=== PATIENT | female | born 1945 | race Caucasian/White ===

== ENCOUNTER 2023-08-15 07:31 | Day surgery (SDC) | payer MEDICARE ==
--- NOTE | 2023-08-14 07:56 | HP ---
DATE OF SURGERY: 08/15/2023 HISTORY OF PRESENT ILLNESS: The patient is a 78-year-old female presents for endoscopy. The patient has not had colonoscopy to date. No colon symptoms. No upper GI symptoms. No family history of colon cancer. She has had Cologuard in the past that had been okay. PAST MEDICAL HISTORY: Hypertension, anxiety, melanoma, depression, hyperlipidemia. PAST SURGICAL HISTORY: Inguinal hernia repair. Melanoma surgery. Tubal ligation. Hysterectomy. ALLERGIES: SULFA. MEDICATIONS: Vitamin D, multivitamin, Lisinopril, fluoxetine, vitamin B12, atorvastatin, amlodipine, alendronate. FAMILY HISTORY: None reported. SOCIAL HISTORY: None reported. REVIEW OF SYSTEMS: CONSTITUTIONAL: Denies fever or chills. CHEST: Denies shortness of breath. CVS: Denies chest pain. ABDOMEN: Denies abdominal pain. PHYSICAL EXAMINATION: GENERAL: No acute distress. CHEST: Nonlabored. No shortness of breath. CVS: Regular rate and rhythm. ABDOMEN: Soft. IMPRESSION: Screening colon. PLAN: Colonoscopy with Dr. Josh Arceo. As dictated by Malka Fuller NP.
[2023-08-15] MEDS ORDERED: Lactated Ringers 1,000 ML IV ONE (07:39)
[2023-08-15] MEDS: Lactated Ringers 1,000 ML IV SCH (07:43)
[2023-08-15] MEDS ORDERED: Xylocaine-Mpf 2% 5 Ml Vial ONE (09:48)
[2023-08-15] MEDS ORDERED: DIPRIVAN 200 MG/20 ML IV ONE ×2 (09:48→10:01)
[2023-08-15 10:43] VITALS: TEMP 97.7
--- NOTE | 2023-08-15 10:46 | OP ---
SURGERY DATE/TIME: 08/15/2023 0948 PREOPERATIVE DIAGNOSIS: Screening. POSTOPERATIVE DIAGNOSIS: Moderate sigmoid diverticulosis. PROCEDURE: Colonoscopic examination to cecum. SURGEON: Josh Arceo M.D. SHAREPOINT DEVELOPER: Teressa Frey M.D., [facility] Resident II. ANESTHESIA: MAC. COMPLICATIONS: None. CONDITION: Stable. INDICATION: The patient presents for screening. DESCRIPTION OF PROCEDURE: Taken to endoscopy. Left lateral decubitus position. Anal digital examination satisfactory. Scope introduced. Anus, rectum normal. Sigmoid moderate diverticulosis. There is no spasm and no Glucagon was required. The scope advanced to the descending colon. The scope was then rapidly moved over to the cecum. Base of the cecum, ileocecal valve, appendiceal orifice was normal. Ascending, hepatic, transverse, splenic, descending was normal. Sigmoid as noted, rectum and anus. IMPRESSION: Moderate sigmoid diverticulosis. PLAN: Follow up in five years. Findings discussed with the daughter in the waiting room. Prep score was excellent. Withdrawal time about six minutes.
[2023-08-15 10:53] VITALS: BP 135/58; PULSE 75; RESP 18; O2SAT 100
== END 2023-08-15 11:07 | disposition home or self-care (01) ==
LOC: SDC 07:31
PROVIDERS: ATTEND Surgery
DX: Z12.11 Encounter for screening for malignant neoplasm of colon (principal); K57.30 Diverticulosis of large intestine without perforation or abscess without bleeding
CPT/HCPCS: J2704